=== PATIENT | female | born 1995 | race Caucasian/White ===

== ENCOUNTER 2017-10-21 08:38 | Emergency (ER) | payer BC ==
[~2017-10-21] VITALS: Ht 157.5 cm; Wt 57.0 kg
[2017-10-21 08:50] VITALS: TEMP 36.7; Ht 157.5 cm; Wt 57.0 kg
--- NOTE | 2017-10-21 09:41 | EMERGENCY ROOM VISIT NOTE ---
History First contact with patient: 09:13 Chief Complaint: VOMITING Stated Complaint: NAUSEA, VOMITING, DIARRHEA Nursing Triage Summary: patient c/o feeling tired and ill yesterday throughout the day. patient c/o sudden onset of nausea, vomiting and diarrhea since last night. 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 History of Present Illness The patient is a 22 year old female who presents to the Emergency Room with complaints of vomiting, nausea, and diarrhea x1 day. She had been feeling unwell for the past 2-3 days. The patient did get her period 2 days ago, so thought she was feeling ill due to the menstrual cycle. She states she did go to the [employer] show over the weekend, and was feeling okay, however not completely herself. The patient states her parents brought her back to college last night , and they did eat at all guarding. After her parents left, at approximately 6: 30 PM. The patient began experiencing diarrhea and nausea with vomiting. The patient states approximate 10:15 last night, she was on the phone with her mother, when she did experience one episode of syncope. The patient's mother is uncertain how long the patient was unconscious, but states she was able to awaken her by screaming into the phone. The patient's mother returned to stay the night with the patient, and states throughout the night, she attempted to drink mira toro, but was unable to keep any of it down, and vomited multiple times throughout the night. The patient's mother states she believes the patient vomited approximately 2 L worth of fluid throughout the night. The patient is now c/o weakness, clamminess, bilateral leg cramping, and headache with light sensitivity. The patient describes the headache as achy, mostly in the front. She states she is uncertain if she hit her head last night, however believes she slid off of the toilet and landed on the floor. She does have a history of syncope associated with dehydration and illness. The patient states she also has a history of Lyme disease as a child. She denies any upper respiratory infection symptoms including congestion, rhinorrhea, otalgia, sore throat, fever, cough, wheezing, chest pain, dyspnea. Review of Systems A complete 10 point review of systems was reviewed with the patient with pertinent positives and negatives as per history of present illness. All else were negative. Past Medical/Surgical History Lyme disease Social History Smoking Status: Never Smoker Current/Historical Medications Scheduled Ondasetron Odt (Zofran Odt), 4 MG SL Q6H Allergies Penicillin Physical Exam Vital Signs Date Time Temp Pulse Resp B/P (MAP) Pulse Ox O2 Delivery O2 Flow Rate FiO2 10/21/17 13:28 76 20 123/68 100 Room Air 10/21/17 12:29 71 20 104/54 99 Room Air 10/21/17 10:34 80 16 112/63 100 10/21/17 08:50 36.7 108 18 110/72 99 Room Air Physical Exam VITALS: Vitals are noted on the nurse's note and reviewed by myself. Vital signs stable. GENERAL: This is a 22-year-old white female, in no acute distress, ill-appearing , however nontoxic looking, nondiaphoretic, well-developed well-nourished. SKIN: The skin was without rashes, erythema, edema, or bruising. There is no tenting of the skin. Capillary reflex less than 2 seconds. HEAD: Normocephalic atraumatic. EARS: External auditory canals clear, tympanic membranes pearly wells without erythema or effusion bilaterally. EYES: Pupils equal round and reactive to light and accommodation. Conjunctivae without injection, sclerae without icterus. Extraocular movements intact. NOSE: Patent, turbinates without inflammation or discharge. No sinus tenderness. MOUTH: Mucous membranes moist. Tonsils are not enlarged. Pharynx without erythema or exudate. Uvula midline. Airway patent. Tongue does not deviate. NECK: Supple without nuchal rigidity. No lymphadenopathy. No thyromegaly. Cervical spine is nontender. No JVD. HEART: Regular rate and rhythm without murmurs gallops or rubs. LUNGS: Clear to auscultation bilaterally without wheezes, rales or rhonchi. No dullness to percussion. No retractions or accessory muscle use. ABDOMEN: Positive bowel sounds x 4. Normal tympanic percussion. Soft, nontender, without masses or organomegaly. Sierra sign negative. No guarding or rebound tenderness. MUSCULOSKELETAL: No muscle atrophy, erythema, or edema noted. Full range of motion without joint tenderness in all extremities. No tenderness to palpation. Normal gait. Strength 5/5 throughout. NEURO: Patient was alert and oriented to person place and time. Normal sensation to light and sharp touch. Deep tendon reflexes 2+ throughout. No focal neurological deficits. Medical Decision & Procedures ER Provider Diagnostic Interpretation: CBC was without leukocytosis, anemia, thrombocytopenia. Urinalysis was positive for blood, protein, epithelial cells. Urinalysis did show 1+ bacteria and mucus. The patient is currently on her cycle, and I suspect a contaminated specimen. Urine test was negative. You repeat did not show any significant renal or electrolyte abnormalities. Lipase was normal. Laboratory Results 10/21/17 10:10 Red Blood Count 5.38, Mean Corpuscular Volume 85.1, Mean Corpuscular Hemoglobin 29.7, Mean Corpuscular Hemoglobin Concent 34.9, Mean Platelet Volume 11.4, Neutrophils (%) (Auto) 91.5, Lymphocytes (%) (Auto) 3.7, Monocytes (%) (Auto) 4.5, Eosinophils (%) (Auto) 0.0, Basophils (%) (Auto) 0.0, Neutrophils # (Auto) 6.77, Lymphocytes # (Auto) 0.27, Monocytes # (Auto) 0.33, Eosinophils # (Auto) 0.00, Basophils # (Auto) 0.00 10/21/17 10:10 Test 10/21/17 10:10 10/21/17 12:15 White Blood Count 7.39 K/uL (4.8-10.8) Red Blood Count 5.38 M/uL (4.2-5.4) Hemoglobin 16.0 g/dL (12.0-16.0) Hematocrit 45.8 % (37-47) Mean Corpuscular Volume 85.1 fL (80-100) Mean Corpuscular Hemoglobin 29.7 pg (25-34) Mean Corpuscular Hemoglobin Concent 34.9 g/dl (32-36) Platelet Count 197 K/uL (130-400) Mean Platelet Volume 11.4 fL (7.4-10.4) Neutrophils (%) (Auto) 91.5 % Lymphocytes (%) (Auto) 3.7 % Monocytes (%) (Auto) 4.5 % Eosinophils (%) (Auto) 0.0 % Basophils (%) (Auto) 0.0 % Neutrophils # (Auto) 6.77 K/uL (1.4-6.5) Lymphocytes # (Auto) 0.27 K/uL (1.2-3.4) Monocytes # (Auto) 0.33 K/uL (0.11-0.59) Eosinophils # (Auto) 0.00 K/uL (0-0.5) Basophils # (Auto) 0.00 K/uL (0-0.2) RDW Standard Deviation 42.2 fL (36.4-46.3) RDW Coefficient of Variation 13.6 % (11.5-14.5) Immature Granulocyte % (Auto) 0.3 % Immature Granulocyte # (Auto) 0.02 K/uL (0.00-0.02) Anion Gap 9.0 mmol/L (3-11) Est Creatinine Clear Calc Drug Dose 66.4 ml/min Estimated GFR () 86.5 Estimated GFR (Non- 74.7 BUN/Creatinine Ratio 12.1 (10-20) Calcium Level 9.1 mg/dl (8.5-10.1) Total Bilirubin 0.8 mg/dl (0.2-1) Aspartate Amino Transf (AST/SGOT) 16 U/L (15-37) Alanine Aminotransferase (ALT/SGPT) 26 U/L (12-78) Alkaline Phosphatase 56 U/L (45-117) Total Protein 7.9 gm/dl (6.4-8.2) Albumin 4.3 gm/dl (3.4-5.0) Globulin 3.6 gm/dl (2.5-4.0) Albumin/Globulin Ratio 1.2 (0.9-2) Lipase 60 U/L (73-393) Urine Color BROWN Urine Appearance CLOUDY (CLEAR) Urine pH 5.0 (4.5-7.5) Urine Specific [place] >= 1.030 (1.000-1.030) Urine Protein 2+ (NEG) Urine Glucose (UA) NEG (NEG) Urine Ketones NEG (NEG) Urine Occult Blood 3+ (NEG) Urine Nitrite NEG (NEG) Urine Bilirubin NEG (NEG) Urine Urobilinogen NEG (NEG) Urine Leukocyte Esterase NEG (NEG) Urine RBC >30 /hpf (0-4) Urine WBC 10-30 /hpf (0-5) Urine Epithelial Cells 10-20 /lpf (0-5) Urine Bacteria 1+ (NEG) Urine Mucus PRESENT (NONE PRSENT) Urine Test NEG (NEG) Medications Administered Medications (Trade) Dose Ordered Sig/Mirtha Route Start Time Stop Time Status Last Admin Dose Admin Sodium Chloride 1,000 ml @ 999 mls/hr Q1H1M STAT IV 10/21/17 09:42 10/21/17 10:42 DC 10/21/17 10:32 999 MLS/HR Ondansetron HCl (Zofran Inj) 4 mg NOW STAT IV 10/21/17 09:42 10/21/17 09:46 DC 10/21/17 10:33 4 MG Ketorolac Tromethamine (Toradol Inj) 30 mg NOW STAT IV 10/21/17 09:42 10/21/17 09:46 DC 10/21/17 10:33 30 MG Sodium Chloride 1,000 ml @ 999 mls/hr Q1H1M STAT IV 10/21/17 12:11 10/21/17 13:11 DC 10/21/17 12:28 999 MLS/HR ECG Indication: syncope Rate (beats per minute): 81 Rhythm: normal sinus Findings: no acute ischemic change, no ectopy Comparison ECG Date: no prior available ED Course The patient seen and evaluated as above. IV access was obtained, labs drawn. EKG was obtained and reviewed. The patient was given 1 L normal saline solution and 4 mg Zofran IV. I reevaluated the patient, and she was feeling improved, and felt thirsty. The patient did request some fluids and crackers. He did successfully tolerate these medications, however states when she stood up to go to the bathroom, she did begin feeling nauseated and dizzy again. The patient was given 500 mL bolus normal saline solution. The patient was reassessed. She was converted briefly sleeping. I spoke with the patient's mother regarding discharge instructions. The patient and her mother were in agreement that the patient is feeling well enough to tolerate by mouth fluids at home. The patient's mother will stay locally here to keep an eye on the patient and ensure she continues to improve. Discharge instructions reviewed, the patient was discharged home in good condition. Medical Decision This is a 22-year-old white female who presents today with her mother complaining of nausea, vomiting, and diarrhea which began last evening. The patient's symptoms did improve significantly with normal saline solution and Zofran through the IV. The patient did successfully tolerate by mouth fluids and crackers. She continued to feel lousy prior to discharge, however she was feeling well enough to go home. I suspect the patient's symptoms are related to a viral gastroenteritis versus food poisoning, as the symptoms occurred shortly after eating dinner at a restaurant. The history of the patient not feeling quite right over the weekend, I do suspect a viral gastroenteritis. Differential diagnosis includes gastroenteritis, food poisoning, gastritis, diverticulitis, appendicitis, otitis, hepatic disease, cholecystitis, malignancy , and others Medication Reconcilliation Current Medication List: was personally reviewed by me Blood Pressure Screening Patient's blood pressure: Normal blood pressure Impression Primary Impression: Gastroenteritis Departure Information Dispostion Home / Self-Care Condition GOOD Prescriptions Ondasetron Odt (ZOFRAN ODT) 4 Mg Tab 4 MG SL Q6H for Nausea, #6 TAB Prov: Cassidy Velasquez PA-C 10/21/17 Referrals No Doctor, Assigned (PCP) [facility] Patient Instructions ED Gastroenteritis Vs Food Poison, My [facility] Additional Instructions You have been treated in the Emergency Department your nausea, vomiting, diarrhea. Laboratory results have ruled out any emergent causes for your abdominal pain which would warrant admission or surgery. You have been prescribed Zofran to be used for any nausea or vomiting. Take as prescribed. For pain control, you can use the following [id number] medicines (if >12 yo): Ibuprofen(Motrin, Advil) may be used for fever or pain. Use 600mg every six hours as needed. Take with food. Avoid using more than 2400mg in a 24 hour period. Do not use 2400mg per day for more than three consecutive days without physician direction. Prolonged inappropriate use can lead to stomach upset or ulcers. (AND/OR) Acetaminophen(Tylenol) may be used for fever or pain. Use 1000mg every six hours as needed. Avoid using more than 3000mg in a 24 hour period. Drink plenty of water and stay well hydrated. As with any trip to the Emergency Department, you should follow-up with your Primary Care Provider/[facility] from today's visit. Return to the emergency department if your symptoms persist despite treatment plan outlined above or if the following symptoms occur: increased fevers, chills , worsening nausea/vomiting, blood in your stool or urine. School Instructions Return To School: 2 days
[2017-10-21] MEDS ORDERED: ONDANSETRON INJ 2 MG/ML 2 ML VIAL IV STA (09:42)
[2017-10-21] MEDS ORDERED: SODIUM CHLORIDE 0.9% 1000ML 1,000 ML IV STA ×2 (09:42→12:11)
[2017-10-21] MEDS ORDERED: KETOROLAC TROMETHAMINE 30 MG/ML VIAL IV STA (09:42)
[2017-10-21 10:38] LABS: HEMATOCRIT 45.8 % (37-47); IG# 0.02 K/uL (0.00-0.02); LYMPH % 3.7 %; LYMPH ABS # 0.27 K/uL (1.2-3.4); MEAN CELL VOLUME 85.1 fL (80-100); MEAN CORPUSCULAR HEMOGLOBIN 29.7 pg (25-34); MEAN CORPUSCULAR HGB CONC 34.9 g/dl (32-36); MEAN PLATELET VOLUME 11.4 fL (7.4-10.4); MONO % 4.5 %; MONO ABS # 0.33 K/uL (0.11-0.59); NEUT % 91.5 %; NEUT ABS # 6.77 K/uL (1.4-6.5); PLATELET COUNT 197 K/uL (130-400); RED CELL DISTRIBUTION WIDTH CV 13.6 % (11.5-14.5); RED CELL DISTRIBUTION WIDTH SD 42.2 fL (36.4-46.3); WHITE BLOOD COUNT 7.39 K/uL (4.8-10.8)
[2017-10-21 10:56] LABS: ALBUMIN 4.3 gm/dl (3.4-5.0); CALCIUM 9.1 mg/dl (8.5-10.1); CREATININE 1.07 mg/dl (0.60-1.20); POTASSIUM 3.8 mmol/L (3.5-5.1)
[2017-10-21 10:59] LABS: TOTAL PROTEIN 7.9 gm/dl (6.4-8.2)
[2017-10-21] MEDS ORDERED: ONDA4TAB10 SL (12:27)
[2017-10-21 13:28] VITALS: BP 123/68; PULSE 76; O2SAT 100
== END 2017-10-21 13:29 | disposition home or self-care (01) ==
LOC: MERGE 08:42 → C.EDB 08:42 → C.EDA 13:29
DX: K52.9 Noninfective gastroenteritis and colitis, unspecified (principal)